=== PATIENT | female | born 1990 | race African-American/Black ===

== ENCOUNTER 2017-01-11 10:04 | Emergency (ER) | payer OTHER ==
[~2017-01-11 10:04] MED LIST: BETAMETHASONE D15 G2 TP; DIFLUCAN PO; FLEXERIL10 MG PO; IMPLANON68 MG/IMPL; IRON1 TAB PO; KEFLEX500 M1 PO; MACROBID100 M1 PO; MICATIN15 GM VAG; NAPROSYN500 MG PO; NO MEDICATIONS; PHENERGAN25 M1 PO; PHENERGAN25 MG PO; PRENACARE TABL1 EACH PO; PRENATAL1 TA1 PO; TYLENOL #3 PO; VOLTAREN50 MG PO; ZOFRAN ODT4 MG PO
[2017-01-11] MEDS ORDERED: PRENATA CHEWAB1 EAC1 PO (10:12)
== END 2017-01-11 11:00 | disposition hospice, home (50) ==
LOC: SED 10:04
DX: O99.89 Other specified diseases and conditions complicating pregnancy, childbirth and the puerperium (principal); R10.9 Unspecified abdominal pain; Z3A.37 37 weeks gestation of pregnancy; Z79.899 Other long term (current) drug therapy
CPT/HCPCS: 99283